=== PATIENT | male | born 1965 | race American Indian/Alaskan Native ===

== ENCOUNTER 2017-06-19 11:37 | Emergency (ER) | payer SELFPAY ==
[2017-06-19 12:21] LABS: Basophils # (Auto) 0.1 K/mm3 (0.0-0.1); Eosinophils # (Auto) 0.5 K/mm3 (0.0-0.4); Eosinophils % (Auto) 4.6 % (0.0-4.3); Hematocrit 43.4 % (35.5-45.6); Hemoglobin 14.3 gm/dl (11.8-15.2); Lymphocytes % (Auto) 19.3 % (13.4-35.0); Mean Corpuscular HGB Conc 33 % (32-34); Mean Corpuscular Hemoglobin 31 pg (28-32); Mean Corpuscular Volume 95 fl (84-94); Monocytes # (Auto) 0.6 K/mm3 (0.0-0.8); Monocytes % (Auto) 6.3 % (0.0-7.3); Platelet Count 223 K/mm3 (140-440); Red Blood Count 4.59 M/mm3 (3.65-5.03); Red Cell Distribution Width 13.1 % (13.2-15.2)
[2017-06-19 12:30] LABS: Alanine Aminotransferase 17 units/L (7-56); Albumin 3.9 g/dL (3.9-5); BUN/Creatinine Ratio 23; Blood Urea Nitrogen 23 mg/dL (9-20); Calcium 9.2 mg/dL (8.4-10.2); Hemolysis Index 11
--- NOTE | 2017-06-19 12:35 | Emergency Department Report ---
ED Male HPI - General Chief complaint: Abdominal Pain Stated complaint: ABDOMINAL PAIN/BURNING WITH URINATION Time Seen by Provider: 06/19/17 12:26 Source: patient Mode of arrival: Ambulatory Limitations: No Limitations - History of Present Illness Initial comments: Patient is 51 years old male with no significant past medical history presented to the ER with 3 day history of penile discharge and lower abdominal pain. Patient stated that one of his girlfriends just recently diagnosed with STD. Patient denied any nausea vomiting or fever. MD Complaint: penile discharge, dysuria -: days(s) Location: penis Severity: moderate Worsens with: urination discharge - Related Data Sexually active: Yes (with multiple partners) Allergies Allergy/AdvReac Type Severity Reaction Status Date / Time No Known Allergies Allergy Unverified 06/19/17 11:49 ED Review of Systems ROS: Stated complaint: ABDOMINAL PAIN/BURNING WITH URINATION Other details as noted in HPI Comment: All other systems reviewed and negative Respiratory: denies: cough, shortness of breath Cardiovascular: denies: chest pain, palpitations, dyspnea on exertion Gastrointestinal: abdominal pain. denies: nausea, vomiting, diarrhea, constipation, hematemesis, melena, hematochezia Genitourinary: urgency, dysuria, frequency, discharge. denies: hematuria, testicular pain, testicular mass Neurological: denies: headache, weakness, numbness, paresthesias ED Past Medical Hx - Social History Smoking Status: Current Every Day Smoker ED Physical Exam - General Limitations: No Limitations General appearance: alert, in no apparent distress - Head Head exam: Present: atraumatic, normocephalic, normal inspection - Eye Eye exam: Present: normal appearance, PERRL - ENT ENT exam: Present: normal exam, normal orophraynx, mucous membranes moist - Neck Neck exam: Present: normal inspection, full ROM. Absent: tenderness, meningismus, lymphadenopathy, thyromegaly - Respiratory Respiratory exam: Present: normal lung sounds bilaterally. Absent: respiratory distress, wheezes, rales, chest wall tenderness - Cardiovascular Cardiovascular Exam: Present: regular rate, normal rhythm, normal heart sounds - GI/Abdominal GI/Abdominal exam: Present: soft, normal bowel sounds. Absent: distended, tenderness, guarding, rebound, rigid, diminished bowel sounds, organomegaly, mass, bruit, pulsatile mass, hernia - Extremities Exam Extremities exam: Present: normal inspection, full ROM, normal capillary refill - Back Exam Back exam: Present: normal inspection, full ROM. Absent: tenderness, CVA tenderness (R), CVA tenderness (L), muscle spasm, paraspinal tenderness - Neurological Exam Neurological exam: Present: alert, oriented X3, CN II-XII intact, normal gait - Skin Skin exam: Present: warm, intact, normal color ED Course Vital Signs 06/19/17 06/19/17 06/19/17 11:44 14:25 15:14 Temperature 98.6 F 98.6 F 98.6 F Pulse Rate 101 H 101 H 101 H Blood Pressure 120/80 Blood Pressure 123/66 123/66 [Left] O2 Sat by Pulse 98 Oximetry - Reevaluation(s) Reevaluation #1: 06/19/17 14:14 Patient treated empirically in the ER with Rocephin 250 mg IM and 1 g of zithromaxmax. Patient advised to follow-up with his primary care physician for further management. ED Medical Decision Making - Lab Data Result diagrams: 06/19/17 12:00 06/19/17 12:00 Critical care attestation.: If time is entered above; I have spent that time in minutes in the direct care of this critically ill patient, excluding procedure time. ED Disposition Clinical Impression: Penile discharge, STD (male) Disposition: - TO HOME OR SELFCARE Is pt being admited?: No Condition: Stable Instructions: Sexually Transmitted Diseases (ED) Referrals: PRIMARY CARE, [Primary Care Provider] - 3-5 Days
[2017-06-19 14:06] LABS: Bilirubin,Urine NEG (Negative); Blood,Urine MOD (Negative); Color,Urine Yellow (Yellow); Hyaline Casts,Urine 1 /LPF; Urobilinogen,Urine < 2.0 mg/dL (<2.0)
[2017-06-19] MEDS: ROCEPHIN IM ONE (14:06)
[2017-06-19] MEDS: ZITHROMAX PO ONE (14:06)
[2017-06-19] MEDS: XYLOCAINE 1% MPF 5 mL INFILTRATI ONE (14:06)
[2017-06-19 15:15] VITALS: BP 123/66
== END 2017-06-19 14:35 | disposition home or self-care (01) ==
LOC: ED 11:37
DX: R36.9 Urethral discharge, unspecified (principal); A64 Unspecified sexually transmitted disease; F17.200 Nicotine dependence, unspecified, uncomplicated
CPT/HCPCS: 36415; 80053; 81001; 85025; 96372; 99283; J0696